=== PATIENT | female | born 1980 | race Caucasian/White ===

== ENCOUNTER 2017-09-22 17:50 | Emergency (ER) | payer OTHER ==
[2017-09-22] MEDS ORDERED: Ondansetron ODT 4 MG TAB ONE (18:08)
--- NOTE | 2017-09-22 18:38 | CT ---
CT OF THE BRAIN WITHOUT CONTRAST: Date: 09/22/17 COMPARISON: 07/17/12. HISTORY: Headache with blurry vision. Head injury. Right side of face was hit by an opening door. TECHNIQUE: Multiple contiguous axial images were obtained in a CT of the brain without contrast. FINDINGS: The brain is normal in morphology and attenuation without focal lesions or confluent areas of infarct ion. There is no evidence of hydrocephalus, intracranial hemorrhage, or extra-axial fluid collection. The calvarium and overlying soft tissues are unremarkable. The visualized paranasal sinuses and masto id air cells are well aerated. IMPRESSION: No evidence of acute intracranial abnormality. POS: [facility]
== END 2017-09-22 18:22 | disposition home or self-care (01) ==
LOC: SCSER 17:50
DX: S00.81XA Abrasion of other part of head, initial encounter (principal); J45.909 Unspecified asthma, uncomplicated; W22.8XXA Striking against or struck by other objects, initial encounter
CPT/HCPCS: 70450; Q0162

== ENCOUNTER 2018-04-01 09:30 | Outpatient (CLI) | payer OTHER ==
--- NOTE | 2018-04-01 12:09 | ULT ---
PELVIC ULTRASOUND: Date: 04/01/18 HISTORY: Abdominal bloating. Bilateral leg swelling. CORRELATION: CT abdomen and pelvis dated 09/13/14. TECHNIQUE: Transabdominal and endovaginal imaging of the pelvis is performed. Ovaries interrogated with Hill sca le, color flow, Doppler imaging, and spectral waveform analysis. FINDINGS: Uterus is identified, without myometrial masses. Uterus measures 7.7 x 4.6 x 4.7 cm. No myometrial ma ss. Endometrium is homogeneous in echotexture measuring 0.5 cm. There are bilateral dilated vessel with multiple bilateral ovarian follicles. Right ovary measures 4. 0 x 2.4 x 2.2 cm. Left ovary measures 2.2 x 1.2 x 1.2 cm. Incidentally, the uterus is retroverted. There is no free fluid. Ovarian Doppler: Vascular flow to the left and right ovary. IMPRESSION: Multiple bilateral ovarian follicles. Increased vascularity in the left and right adnexa. Correlate f or pelvic venous congestion. Pelvic MRI may be beneficial to better assess the adnexal structures. Th e presence of dilatation of the ovarian veins was noted on the previous CT. POS: [facility]
== END 2018-04-01 09:31 | disposition home or self-care (01) ==
LOC: BICULT 09:30
PROVIDERS: ATTEND Family Medicine
DX: R14.0 Abdominal distension (gaseous) (principal); M79.89 Other specified soft tissue disorders; N88.8 Other specified noninflammatory disorders of cervix uteri
CPT/HCPCS: 76856

== ENCOUNTER 2018-04-16 12:16 | Outpatient (CLI) | payer OTHER ==
[~2018-04-16 12:16] MED LIST: Gadobenate Dimeglumine 529 MG/1 ML (20ML VIAL) ONE
--- NOTE | 2018-04-17 21:19 | MRI ---
MRI OF THE PELVIS WITH AND WITHOUT CONTRAST: 04/17/18 INDICATION: History of pelvic congestion. COMPARISON: Pelvic ultrasound dated 04/01/18 from [facility]. TECHNIQUE: Multiplanar and multisequence MR images were obtained of the pelvis with and without contrast utilizi ng 14 mL of Multihance. FINDINGS: There are numerous prominent varicosities surrounding the uterus, cervix and upper vagina extending u p to the left internal iliac vasculature. There is heterogeneity involving the uterine body which may be related to prominent vessels within the burgess of the uterus. There is small Nabothian cysts withi n the cervix. Junctional zone is normal appearing. No free fluid or enlarged lymph nodes are evident. There is a 3.5 cm follicular cyst within the right ovary. There is a small 8 mm cyst involving the r ight ovary. The left ovary is normal appearing. The bladder, rectum and perirectal soft tissues are u nremarkable appearing. No bone marrow signal abnormality is evident. Small cyst is seen involving the superior pole of the right kidney. IMPRESSION: Prominent varicosities surrounding the uterus and involving the uterine wall as well as surrounding t he cervix and upper vagina is suspicious for pelvic venous congestion syndrome. There are dilated leila icosities that extend up to the internal iliac venous structures. No definite intrapelvic mass is dem onstrated. Right ovarian follicular cyst. Small right renal cyst. Nabothian cysts. POS: [facility]
== END 2018-04-16 12:17 | disposition home or self-care (01) ==
LOC: SCSMRI 12:16
PROVIDERS: ATTEND Family Medicine
DX: N94.89 Other specified conditions associated with female genital organs and menstrual cycle (principal); I86.8 Varicose veins of other specified sites; N83.01 Follicular cyst of right ovary; N28.1 Cyst of kidney, acquired; N88.8 Other specified noninflammatory disorders of cervix uteri
CPT/HCPCS: 72197; A9579